=== PATIENT | male | born 1955 | race Caucasian/White ===

== ENCOUNTER 2020-02-01 10:36 | Inpatient (IN) | payer SELFPAY ==
[~2020-02-01] VITALS: Ht 172.7 cm; Wt 89.8 kg
[~2020-02-01 10:36] MED LIST: EPINEPHRINE 0.1MG/ML (1:10,000) 10ML SYR ONE; SODIUM BICARBONATE 8.4% MEQ/ML 50ML VIAL IV ONE
[2020-02-01] MEDS ORDERED: EPINEPHRINE 0.1MG/ML (1:10,000) 10ML SYR ONE (10:45)
[2020-02-01] MEDS ORDERED: SODIUM CHLORIDE 0.9% 1,000 ML IV ONE (10:54)
[2020-02-01] MEDS ORDERED: SODIUM CHLORIDE 0.9% 1000ML BAG (SEPSIS BOLUS) IV ONE (11:00)
[2020-02-01] MEDS ORDERED: SUCCINYLCHOLINE CHLORIDE 200MG/10ML IV ONE (11:00)
[2020-02-01] MEDS ORDERED: FENTANYL CITRATE/PF 50MCG/ML 2ML VIAL IV ONE (11:00)
[2020-02-01] MEDS ORDERED: VANCOMYCIN 1 G PREMIX 200 ML IV ONE (11:00)
[2020-02-01] MEDS ORDERED: ETOMIDATE 2MG/ML 10ML VIAL IV ONE (11:00)
[2020-02-01] MEDS ORDERED: PROPOFOL 10MG/ML 100ML 100 ML IV ONE (11:00)
[2020-02-01] MEDS ORDERED: PIPERACILLIN/TAZ 3.375G PREMIX 50 ML IV ONE (11:00)
[2020-02-01 11:09] LABS: BASOPHILS % 0.6 % (0.0-2.0); HEMATOCRIT. 48.6 % (42.0-52.0); HEMOGLOBIN. 15.5 g/dL (14.0-18.0); LYMPHOCYTES % 33.9 % (20.0-50.0); MEAN CORPUSCULAR VOLUME 94.4 fL (80.0-94.0); MEAN PLATELET VOLUME 8.7 fl (7.4-10.4); MONOCYTES % 5.6 % (2.0-8.0); NEUTROPHILS % 59.9 % (40.0-76.0); PLATELET 146 x1000/uL (130-400); RED BLOOD CELL COUNT 5.15 mill/uL (4.7-6.1); RED CELL DISTRIBUTION WIDTH 14.2 % (11.6-14.6)
[2020-02-01 11:16] LABS: CHLORIDE 90 mEq/L (98-107)
[2020-02-01 11:23] LABS: D-DIMER 3.17 mg/L FEU (<0.50); INR 1.1; PROTHROMBIN TIME 11.6 sec (9.6-11.0)
[2020-02-01] MEDS ORDERED: NOREPINEPHRINE 4MG/250ML PMX 250 ML IV STA (11:28)
[2020-02-01 11:44] LABS: BG BASE EXCESS -29.8 mmol/L (-2.0-2.0); BG CARBOXYHEMOGLOBIN 0.3 % (0.5-1.5); BG FRACTION INSPIRED OXYGEN 100; BG HCO3 ACT 7.3 mmol/L (22.0-26.0); BG METHEMOGLOBIN 0.6 % (0.0-1.5); BG OXYGEN SATURATION 91.9 % (92.0-98.5); BG OXYHEMOGLOBIN 91.1 % (94.0-97.0); BG PCO2 59.1 mmHg (35.0-45.0); BG PH 6.712 (7.350-7.450); BG PO2 113.1 mmHg (75.0-100.0); BG SAMPLE SITE RIGHT RADIAL; BG TIDAL VOLUME(mL) 500 mL; BG TOTAL HEMOGLOBIN 15.5 g/dL (12.0-18.0); BG VENT MODE VENT - A/C; BG VENT RATE 18 set
[2020-02-01] MEDS ORDERED: SODIUM BICARBONATE 8.4% 1 MEQ/ML 50ML SYR IV NR (12:00)
[2020-02-01] MEDS: DEXAMETHASONE 10 MG/ML VIAL IV SCH (12:00)
[2020-02-01] MEDS ORDERED: PHENYLEPHRINE 40 MG in DEXT 5% WATER 496 ML IV PRN ×2 (12:45→15:15)
[2020-02-01] MEDS: SODIUM CHLORIDE 0.9% 1,000 ML IV SCH (12:45)
[2020-02-01] MEDS ORDERED: DEXT 5%/0.45% NACL 1000ML 1,000 ML IV SCH (13:11)
[2020-02-01] MEDS ORDERED: ONDANSETRON HCL 4MG/2ML INJ IV PRN (13:15)
[2020-02-01] MEDS ORDERED: ENOXAPARIN 40MG/0.4ML SYR SUBCUT SCH (13:15)
[2020-02-01] MEDS ORDERED: ACETAMINOPHEN 325MG TABLET PO PRN (13:15)
[2020-02-01] MEDS ORDERED: ENOXAPARIN 100MG/ML SYR SUBCUT SCH (13:30)
[2020-02-01] MEDS ORDERED: DEXTROSE 50% WATER 50ML SYRINGE IV PRN (14:15)
[2020-02-01 14:29] LABS: BG BASE EXCESS -17.4 mmol/L (-2.0-2.0); BG CARBOXYHEMOGLOBIN 0.8 % (0.5-1.5); BG DEOXYHEMOGLOBIN 29.2 % (0.0-5.0); BG FRACTION INSPIRED OXYGEN 100; BG HCO3 ACT 13.4 mmol/L (22.0-26.0); BG METHEMOGLOBIN 0.3 % (0.0-1.5); BG OXYGEN SATURATION 70.5 % (92.0-98.5); BG OXYHEMOGLOBIN 69.7 % (94.0-97.0); BG PCO2 49.9 mmHg (35.0-45.0); BG PH 7.047 (7.350-7.450); BG PO2 51.4 mmHg (75.0-100.0); BG SAMPLE SITE RIGHT RADIAL; BG TIDAL VOLUME(mL) 500 mL; BG TOTAL HEMOGLOBIN 18.1 g/dL (12.0-18.0); BG VENT MODE VENT - A/C PRVC; BG VENT RATE 26 set
[2020-02-01] MEDS: AZITHROMYCIN 500 MG in DEXT 5% WATER 250 ML IV SCH (15:02)
[2020-02-01] MEDS: INSULIN LISPRO (HIGH DOSE) 100 UNITS/ML SUBCUT SCH ×3 (15:03→22:02)
[2020-02-01] MEDS: BLOOD SUGAR DIAGNOSTIC STRIP TEST SCH ×3 (15:03→21:13)
[2020-02-01] MEDS ORDERED: NOREPINEPHRINE 4MG/250ML PMX 250 ML IV PRN (15:30)
[2020-02-01] MEDS: SODIUM BICARBONATE 150 MEQ in SODIUM CHLORIDE 0.45% 1,000 ML IV SCH (15:42)
[2020-02-01] MEDS ORDERED: SODIUM BICARBONATE 8.4% MEQ/ML 50ML VIAL IV NR (15:45)
[2020-02-01 16:15] LABS: BG BASE EXCESS -7.5 mmol/L (-2.0-2.0); BG CARBOXYHEMOGLOBIN 0.5 % (0.5-1.5); BG DEOXYHEMOGLOBIN 3.7 % (0.0-5.0); BG FRACTION INSPIRED OXYGEN 100; BG HCO3 ACT 17.9 mmol/L (22.0-26.0); BG METHEMOGLOBIN 0.5 % (0.0-1.5); BG OXYGEN SATURATION 96.3 % (92.0-98.5); BG OXYHEMOGLOBIN 95.3 % (94.0-97.0); BG PCO2 36.6 mmHg (35.0-45.0); BG PH 7.308 (7.350-7.450); BG PO2 95.2 mmHg (75.0-100.0); BG SAMPLE SITE RIGHT RADIAL; BG TIDAL VOLUME(mL) 500 mL; BG TOTAL HEMOGLOBIN 16.8 g/dL (12.0-18.0); BG VENT MODE VENT - A/C-PRVC; BG VENT RATE 26 set
[2020-02-02] MEDS: PIPERACILLIN/TAZ 3.375G PREMIX 50 ML IV SCH ×2 (00:28→11:37)
[2020-02-02] MEDS: ENOXAPARIN 100MG/ML SYR SUBCUT SCH ×2 (03:00→23:26)
[2020-02-02] MEDS: SODIUM BICARBONATE 150 MEQ in SODIUM CHLORIDE 0.45% 1,000 ML IV SCH (03:00)
[2020-02-02] MEDS ORDERED: NOREPINEPHRINE 4MG/250ML PMX 250 ML IV ONE ×3 (03:31→21:30)
[2020-02-02] MEDS ORDERED: ACETAMINOPHEN 650MG SUPP ONE (04:18)
[2020-02-02] MEDS: SODIUM CHLORIDE 0.9% 1,000 ML IV SCH (05:25)
[2020-02-02 05:57] LABS: HEMATOCRIT. 52.6 % (42.0-52.0); HEMOGLOBIN. 17.7 g/dL (14.0-18.0); LYMPHOCYTES % 10.9 % (20.0-50.0); MEAN CORPUSCULAR HEMOGLOBIN 29.4 pg (28.0-32.0); MEAN CORPUSCULAR VOLUME 87.4 fL (80.0-94.0); MEAN PLATELET VOLUME 8.2 fl (7.4-10.4); MONOCYTES % 3.2 % (2.0-8.0); NEUTROPHILS % 85.9 % (40.0-76.0); PLATELET 311 x1000/uL (130-400); RED BLOOD CELL COUNT 6.02 mill/uL (4.7-6.1); RED CELL DISTRIBUTION WIDTH 13.8 % (11.6-14.6)
[2020-02-02] MEDS: BLOOD SUGAR DIAGNOSTIC STRIP TEST SCH ×4 (06:38→21:21)
[2020-02-02] MEDS: INSULIN LISPRO (HIGH DOSE) 100 UNITS/ML SUBCUT SCH ×4 (06:39→21:22)
[2020-02-02] MEDS ORDERED: INSULIN LISPRO 100 UNITS/ML SUBCUT ONE (06:46)
[2020-02-02 08:49] LABS: BG BASE EXCESS -2.5 mmol/L (-2.0-2.0); BG CARBOXYHEMOGLOBIN 0.2 % (0.5-1.5); BG DEOXYHEMOGLOBIN 1.4 % (0.0-5.0); BG FRACTION INSPIRED OXYGEN 100; BG HCO3 ACT 20.7 mmol/L (22.0-26.0); BG METHEMOGLOBIN 0.7 % (0.0-1.5); BG OXYGEN SATURATION 98.6 % (92.0-98.5); BG OXYHEMOGLOBIN 97.7 % (94.0-97.0); BG PCO2 32.7 mmHg (35.0-45.0); BG PH 7.419 (7.350-7.450); BG PO2 144.6 mmHg (75.0-100.0); BG SAMPLE SITE RIGHT RADIAL; BG TIDAL VOLUME(mL) 500 mL; BG TOTAL HEMOGLOBIN 18.9 g/dL (12.0-18.0); BG VENT MODE PRVC; BG VENT RATE 26 set
[2020-02-02] MEDS ORDERED: DEXAMETHASONE 10 MG/ML VIAL ONE (09:34)
[2020-02-02] MEDS: DEXAMETHASONE 10 MG/ML VIAL IV SCH (09:36)
[2020-02-02] MEDS ORDERED: REMDESIVIR 200 MG in SODIUM CHLORIDE 0.9% 250 ML IV NR (12:00)
[2020-02-02 13:19] LABS: CLARITY URINE CLOUDY (CLEAR); COLOR URINE RED (YELLOW); KETONES URINE NEGATIVE (NEGATIVE); LEUKOCYTE ESTERASE URINE 1+ (NEGATIVE); NITRITE URINE NEGATIVE (NEGATIVE); OCCULT BLOOD URINE 3+ (NEGATIVE); PROTEIN URINE 2+ (NEGATIVE); SPECIFIC GRAVITY URINE 1.013 (1.005-1.030); UROBILINOGEN URINE 0.2 E.U./dL (0.2-1.0)
[2020-02-02] MEDS: IPRATROPIUM/ALBUTEROL 0.5-3(2.5)MG/3ML NEB HHN SCH ×2 (13:21→19:50)
[2020-02-02 13:34] LABS: *AMPHETAMINES SCREEN URINE NEGATIVE (NEGATIVE)
[2020-02-02 13:35] LABS: *BARBITURATES SCREEN URINE NEGATIVE (NEGATIVE); *BENZODIAZEPINES SCREEN URINE NEGATIVE (NEGATIVE); *COCAINE SCREEN URINE NEGATIVE (NEGATIVE); METHADONE URINE SCREEN NEGATIVE (NEGATIVE); OPIATES URINE SCREEN NEGATIVE (NEGATIVE)
[2020-02-02 13:36] LABS: CANNABINOID URINE SCREEN NEGATIVE (NEGATIVE); PHENCYCLIDINE URINE SCREEN NEGATIVE (NEGATIVE)
[2020-02-02] MEDS: AZITHROMYCIN 500 MG in DEXT 5% WATER 250 ML IV SCH (14:52)
[2020-02-02] MEDS: SODIUM CHLORIDE 0.45% 1,000 ML IV SCH (14:53)
[2020-02-02] MEDS: PIPERACILLIN/TAZOBACTAM 2.25 G in DEXTROSE 5% WATER 50 ML IV SCH (17:31)
[2020-02-02] MEDS ORDERED: PHENYLEPHRINE 20 MG in DEXT 5% WATER 248 ML IV PRN (21:30)
[2020-02-02] MEDS ORDERED: MIDAZOLAM HCL 50 MG in DEXTROSE 5% WATER 40 ML IV ONE (21:30)
[2020-02-03] VITALS (44 sets, daily range): BP systolic 79–165; BP diastolic 54–98
[2020-02-03] MEDS: IPRATROPIUM/ALBUTEROL 0.5-3(2.5)MG/3ML NEB HHN SCH ×2 (00:35→20:40)
[2020-02-03] MEDS: PIPERACILLIN/TAZOBACTAM 2.25 G in DEXTROSE 5% WATER 50 ML IV SCH ×5 (00:42→23:07)
[2020-02-03] MEDS ORDERED: NOREPINEPHRINE 4MG/250ML PMX 250 ML IV ONE (01:15)
[2020-02-03] MEDS ORDERED: PHENYLEPHRINE 40 MG in SODIUM CHLORIDE 0.9% 496 ML IV PRN (01:38)
[2020-02-03] MEDS ORDERED: NOREPINEPHRINE 4MG/250ML PMX 250 ML IV PRN (02:00)
[2020-02-03 02:36] LABS: CHLORIDE 101 mEq/L (98-107)
[2020-02-03 02:39] LABS: HEMATOCRIT. 50.4 % (42.0-52.0); HEMOGLOBIN. 16.6 g/dL (14.0-18.0); MEAN CORPUSCULAR HEMOGLOBIN 29.4 pg (28.0-32.0); MEAN CORPUSCULAR VOLUME 89.1 fL (80.0-94.0); PLATELET 296 x1000/uL (130-400); RED BLOOD CELL COUNT 5.65 mill/uL (4.7-6.1); RED CELL DISTRIBUTION WIDTH 14.6 % (11.6-14.6)
[2020-02-03 02:45] LABS: INR 1.3; PARTIAL THROMBOPLASTIN TIME 58.5 sec (23.4-31.0); PROTHROMBIN TIME 13.1 sec (9.6-11.0)
[2020-02-03] MEDS: SODIUM CHLORIDE 0.45% 1,000 ML IV SCH ×3 (02:58→19:49)
[2020-02-03 05:22] LABS: CHLORIDE 101 mEq/L (98-107)
[2020-02-03] MEDS: BLOOD SUGAR DIAGNOSTIC STRIP TEST SCH ×4 (06:55→21:17)
[2020-02-03] MEDS: INSULIN LISPRO (HIGH DOSE) 100 UNITS/ML SUBCUT SCH ×4 (06:55→21:51)
[2020-02-03] MEDS: DEXAMETHASONE 10 MG/ML VIAL IV SCH (09:00)
[2020-02-03 10:37] LABS: PLATELET ESTIMATE NORMAL
[2020-02-03] MEDS ORDERED: REMDESIVIR 100 MG in SODIUM CHLORIDE 0.9% 250 ML IV SCH (12:00)
[2020-02-03 12:59] LABS: BG BASE EXCESS -4.1 mmol/L (-2.0-2.0); BG CARBOXYHEMOGLOBIN 0.5 % (0.5-1.5); BG DEOXYHEMOGLOBIN 3.9 % (0.0-5.0); BG FRACTION INSPIRED OXYGEN 100; BG HCO3 ACT 23.7 mmol/L (22.0-26.0); BG METHEMOGLOBIN 0.7 % (0.0-1.5); BG OXYGEN SATURATION 96.1 % (92.0-98.5); BG OXYHEMOGLOBIN 94.9 % (94.0-97.0); BG PCO2 53.7 mmHg (35.0-45.0); BG PH 7.262 (7.350-7.450); BG PO2 86.1 mmHg (75.0-100.0); BG SAMPLE SITE LEFT RADIAL; BG TIDAL VOLUME(mL) 500 mL; BG TOTAL HEMOGLOBIN 15.9 g/dL (12.0-18.0); BG VENT MODE VENT - A/C; BG VENT RATE 22 set
[2020-02-03] MEDS ORDERED: NOREPINEPHRINE 32 MG in DEXT 5% WATER 468 ML IV PRN (15:00)
[2020-02-03] MEDS: AZITHROMYCIN 500 MG in DEXT 5% WATER 250 ML IV SCH (15:40)
[2020-02-03] MEDS: PANTOPRAZOLE SODIUM 40 MG/VIAL IV SCH (17:49)
[2020-02-03] MEDS: INSULIN LISPRO 100 UNITS/ML SUBCUT SCH (18:43)
[2020-02-03] MEDS: INSULIN GLARGINE UD 100 UNITS/ML SYR SUBCUT SCH (21:52)
[2020-02-03] MEDS ORDERED: INSULIN LISPRO 100 UNITS/ML SUBCUT NR (22:00)
[2020-02-03] MEDS ORDERED: INSULIN GLARGINE UD 100 UNITS/ML SYR SUBCUT SCH (22:00)
[2020-02-03] MEDS ORDERED: ENOXAPARIN 100MG/ML SYR SUBCUT SCH (23:00)
[2020-02-04] VITALS (90 sets, daily range): BP systolic 99–176; BP diastolic 62–116
[2020-02-04] MEDS: SODIUM CHLORIDE 0.45% 1,000 ML IV SCH ×2 (02:09→17:37)
[2020-02-04] MEDS: PIPERACILLIN/TAZOBACTAM 2.25 G in DEXTROSE 5% WATER 50 ML IV SCH ×4 (05:10→23:06)
[2020-02-04 05:43] LABS: HEMATOCRIT. 44.5 % (42.0-52.0); HEMOGLOBIN. 14.7 g/dL (14.0-18.0); MEAN CORPUSCULAR HEMOGLOBIN 29.3 pg (28.0-32.0); MEAN CORPUSCULAR VOLUME 88.7 fL (80.0-94.0); MEAN PLATELET VOLUME 7.8 fl (7.4-10.4); PLATELET 231 x1000/uL (130-400); RED BLOOD CELL COUNT 5.01 mill/uL (4.7-6.1); RED CELL DISTRIBUTION WIDTH 14.8 % (11.6-14.6)
[2020-02-04 05:47] LABS: CHLORIDE 98 mEq/L (98-107)
[2020-02-04] MEDS: INSULIN LISPRO 100 UNITS/ML SUBCUT SCH ×3 (06:16→17:35)
[2020-02-04] MEDS: BLOOD SUGAR DIAGNOSTIC STRIP TEST SCH ×4 (06:17→21:04)
[2020-02-04] MEDS: INSULIN LISPRO (HIGH DOSE) 100 UNITS/ML SUBCUT SCH ×4 (06:17→21:05)
[2020-02-04] MEDS: DEXAMETHASONE 10 MG/ML VIAL IV SCH (09:10)
[2020-02-04] MEDS: PANTOPRAZOLE SODIUM 40 MG/VIAL IV SCH (09:10)
[2020-02-04 09:36] LABS: BG BASE EXCESS -6.8 mmol/L (-2.0-2.0); BG CARBOXYHEMOGLOBIN 0.3 % (0.5-1.5); BG DEOXYHEMOGLOBIN 3.8 % (0.0-5.0); BG FRACTION INSPIRED OXYGEN 100; BG HCO3 ACT 20.7 mmol/L (22.0-26.0); BG METHEMOGLOBIN 0.5 % (0.0-1.5); BG OXYGEN SATURATION 96.2 % (92.0-98.5); BG OXYHEMOGLOBIN 95.4 % (94.0-97.0); BG PCO2 48.8 mmHg (35.0-45.0); BG PH 7.246 (7.350-7.450); BG PO2 86.8 mmHg (75.0-100.0); BG SAMPLE SITE RIGHT RADIAL; BG TIDAL VOLUME(mL) 500 mL; BG TOTAL HEMOGLOBIN 15.4 g/dL (12.0-18.0); BG VENT MODE VENT - A/C-PRVC; BG VENT RATE 22 set
[2020-02-04] MEDS: IPRATROPIUM/ALBUTEROL 0.5-3(2.5)MG/3ML NEB HHN SCH ×2 (09:57→21:03)
[2020-02-04] MEDS: INSULIN GLARGINE UD 100 UNITS/ML SYR SUBCUT SCH ×2 (10:06→21:40)
[2020-02-04 11:58] LABS: T4 FREE 2.99 ng/dL (0.76-1.46)
[2020-02-04 13:20] LABS: PLATELET ESTIMATE NORMAL
[2020-02-04] MEDS: AZITHROMYCIN 500 MG in DEXT 5% WATER 250 ML IV SCH (15:34)
[2020-02-05] VITALS (85 sets, daily range): BP systolic 96–151; BP diastolic 60–94
[2020-02-05] MEDS: IPRATROPIUM/ALBUTEROL 0.5-3(2.5)MG/3ML NEB HHN SCH ×4 (01:42→20:54)
[2020-02-05] MEDS: SODIUM CHLORIDE 0.45% 1,000 ML IV SCH ×3 (03:57→22:00)
[2020-02-05] MEDS: PIPERACILLIN/TAZOBACTAM 2.25 G in DEXTROSE 5% WATER 50 ML IV SCH ×4 (05:55→23:27)
[2020-02-05] MEDS: INSULIN LISPRO 100 UNITS/ML SUBCUT SCH ×3 (06:02→17:44)
[2020-02-05] MEDS: INSULIN LISPRO (HIGH DOSE) 100 UNITS/ML SUBCUT SCH ×4 (06:03→21:09)
[2020-02-05] MEDS: BLOOD SUGAR DIAGNOSTIC STRIP TEST SCH ×4 (06:03→20:11)
[2020-02-05 06:08] LABS: CHLORIDE 97 mEq/L (98-107)
[2020-02-05 06:17] LABS: CREATINE KINASE 582 IU/L (39-308)
[2020-02-05 06:33] LABS: HEPATITIS B SURFACE ANTIGEN NEGATIVE
[2020-02-05] MEDS: PANTOPRAZOLE SODIUM 40 MG/VIAL IV SCH (08:59)
[2020-02-05] MEDS: DEXAMETHASONE 10 MG/ML VIAL IV SCH (08:59)
[2020-02-05] MEDS: INSULIN GLARGINE UD 100 UNITS/ML SYR SUBCUT SCH ×2 (10:02→21:10)
[2020-02-05] MEDS: AZITHROMYCIN 500 MG in DEXT 5% WATER 250 ML IV SCH (14:56)
[2020-02-06] VITALS (23 sets, daily range): BP systolic 107–131; BP diastolic 57–82
[2020-02-06] MEDS: IPRATROPIUM/ALBUTEROL 0.5-3(2.5)MG/3ML NEB HHN SCH ×3 (02:23→12:09)
[2020-02-06] MEDS: BLOOD SUGAR DIAGNOSTIC STRIP TEST SCH (05:12)
[2020-02-06] MEDS: PIPERACILLIN/TAZOBACTAM 2.25 G in DEXTROSE 5% WATER 50 ML IV SCH (05:12)
[2020-02-06 06:00] LABS: CHLORIDE 97 mEq/L (98-107)
[2020-02-06] MEDS: INSULIN LISPRO 100 UNITS/ML SUBCUT SCH (06:05)
[2020-02-06] MEDS: INSULIN LISPRO (HIGH DOSE) 100 UNITS/ML SUBCUT SCH (06:06)
[2020-02-06] MEDS: DEXAMETHASONE 10 MG/ML VIAL IV SCH (09:00)
== END 2020-02-06 15:10 | disposition expired | DRG 130 ==
LOC: ER 10:40 → EDBEDREQ 11:43 → EDBEDREQSVC 12:18 → MICUSO 23:02
PROVIDERS: ADMIT Hospitalist; ATTEND Hospitalist
PROC: 5A1955Z Respiratory Ventilation, Greater than 96 Consecutive Hours (ICD-10-PCS; principal; 2020-02-01)
PROC: 0BH18EZ Insertion of Endotracheal Airway into Trachea, Via Natural or Artificial Opening Endoscopic (ICD-10-PCS; 2020-02-01)
PROC: 30233M1 Transfusion of Nonautologous Plasma Cryoprecipitate into Peripheral Vein, Percutaneous Approach (ICD-10-PCS; 2020-02-02)
DX: U07.1 COVID-19 (principal); A41.89 Other specified sepsis; B95.7 Other staphylococcus as the cause of diseases classified elsewhere; B97.89 Other viral agents as the cause of diseases classified elsewhere; D68.69 Other thrombophilia; E11.65 Type 2 diabetes mellitus with hyperglycemia; E43 Unspecified severe protein-calorie malnutrition; E66.01 Morbid (severe) obesity due to excess calories; E86.1 Hypovolemia; E87.1 Hypo-osmolality and hyponatremia; E87.4 Mixed disorder of acid-base balance; G93.2 Benign intracranial hypertension; G93.41 Metabolic encephalopathy; I10 Essential (primary) hypertension; I46.9 Cardiac arrest, cause unspecified; I48.91 Unspecified atrial fibrillation; I60.9 Nontraumatic subarachnoid hemorrhage, unspecified; J12.89 Other viral pneumonia; J96.01 Acute respiratory failure with hypoxia; J96.02 Acute respiratory failure with hypercapnia; M62.82 Rhabdomyolysis; N13.9 Obstructive and reflux uropathy, unspecified; N17.0 Acute kidney failure with tubular necrosis; R31.29 Other microscopic hematuria; R65.21 Severe sepsis with septic shock; Z66 Do not resuscitate; E83.51 Hypocalcemia; Z87.440 Personal history of urinary (tract) infections; Z68.30 Body mass index [BMI] 30.0-30.9, adult; Z79.899 Other long term (current) drug therapy
CPT/HCPCS: 36415; 36600; 71045; 76770; 78610; 80048; 80053; 80061; 80305; 81003; 82375; 82550; 82728; 82805; 82962; 83036; 83605; 83615; 83880; 84145; 84439; 84443; 84484; 85025; 85379; 85384; 86140; 86803; 86850; 86900; 86927; 87340; 93005; 93970; 94002; 94003; 94640; 99291; A9512; C9113; J0456; J1100; J1650; J1815; J2250; J2370; J2543; J2704; J3370; J3490; J7030; J7040; J7050; J7060; P9017; Q9957; U0003-CS